=== PATIENT | female | born 1975 | race Caucasian/White ===

== ENCOUNTER 2016-10-09 20:47 | Emergency (ER) | payer OTHER ==
[~2016-10-09] VITALS: Ht 170.2 cm; Wt 92.3 kg
[~2016-10-09 20:47] MED LIST: ALBUTEROL SULF8.5 GM IH; BENTYL20 MG PO; DETROL; DETROL LA PO; DETROL LA2 MG PO; IBUPROFEN800 MG PO; KLONOPIN0.5 M1 PO; KLONOPIN1 MG PO; LACTULOSE; LEVOTHYROXINE; LEVOTHYROXINE PO; LEVOTHYROXINE100 MCG PO; LEVOTHYROXINE50 MCG PO; LEXAPRO PO; LEXAPRO20 MG PO; LIDOCAINE20 MG/1 M5 PO; METHADONE10 MG PO; MIRALAX; MOTRIN800 MG PO; PERIDEX1 ML MM; PHENERGAN-CODE120 ML PO; PHENTERMINE HCL15 MG PO; PHENTERMINE PO; PREDNISONE20 MG PO; PREMARIN1.25 MG PO; PROZAC20 M1 PO; PROZAC40 MG PO; SOMA350 MG PO; SUBOXONE 8 MG-1 EAC1 SL; SUBOXONE 8 MG-1 EACH SL; TORADOL10 MG PO; TRAZODONE HCL50 MG PO; WELLBUTRIN PO; XANAX1 MG PO; ZITHROMAX Z-PA250 MG PO
[2016-10-09 21:21] LABS: ADD MIUA? YES; BILIRUBIN NEGATIVE; BLOOD NEGATIVE; COLOR YELLOW ((YELLOW)); GLUCOSE (STRIP) NEGATIVE; KETONES 5; LEUKOCYTES NEGATIVE; NITRITE NEGATIVE; PROTEIN (STRIP) 30; UROBILINOGEN 0.2 MG/DL (0.2-1.0)
[2016-10-09 21:27] LABS: BACTERIA RARE /HPF; EPITHELIAL CELLS RARE /HPF; MUCUS TRACE /LPF; WHITE BLOOD CELLS 0-5 /HPF (0-5)
[2016-10-09 21:40] LABS: EOSINOPHIL (%) 1.4 % (0-5); EOSINOPHIL COUNT 0.2 K/uL (0-0.3); HEMATOCRIT 40.1 % (36.0-46.0); IMMATURE GRANULOCYTE (%) 0.3 % (0.0-0.7); INSTRUMENT ABS NEUTROPHIL CT 5.6 K/uL; MCH 29.4 PG (29.0-34.0); MCHC 33.2 G/DL (30.0-36.0); MCV 88.7 FL (83-99); MEAN PLAT.VOLUME 11.2 uM^3 (9.5-12.4); MONOCYTE (%) 6.8 % (3-12); MONOCYTE COUNT 0.8 K/uL (0-0.8); NEUTROPHIL (%) 48.2 % (45-76); NEUTROPHIL COUNT 5.6 K/uL (1.8-6.4); PLATELET COUNT 204 K/uL (156-360); RBC DIS.WIDTH-CV 12.4 % (11.8-14.6); RBC DIS.WIDTH-SD 40.6 % (39-53); RED BLOOD COUNT 4.52 M/uL (3.80-5.20); WHITE BLOOD COUNT 11.6 K/uL (4.1-10.2)
[2016-10-09 21:50] LABS: CHLORIDE 103 mEq/L (99-109); POTASSIUM 3.8 mEq/L (3.7-5.4); SODIUM 139 mEq/L (136-147)
[2016-10-09 21:53] LABS: GLUCOSE 103 mg/dL (70-99)
[2016-10-09 21:54] LABS: ANION GAP 9 MEQ/L (2-14)
[2016-10-09 21:55] LABS: TOTAL BILIRUBIN 0.2 mg/dL (0.0-1.0)
[2016-10-09 21:56] LABS: ALKALINE PHOSPHATASE 124 IU/L (3-129)
[2016-10-09 21:57] LABS: GFR ESTIMATE (CALCULATED) > 59 mL/min/
[2016-10-09 21:58] LABS: DIRECT BILIRUBIN 0.1 mg/dL (0.0-0.3); UREA NITROGEN (BUN) 12 mg/dL (9-23)
[2016-10-09 22:00] LABS: LIPASE 25 U/L (1.0-51.0)
[2016-10-09] MEDS ORDERED: MIRALAX255 GM PO (23:50)
[2016-10-09] MEDS ORDERED: BENTYL20 MG PO (23:50)
[2016-10-10 00:15] VITALS: BP 141/82
== END 2016-10-10 00:17 | disposition home or self-care (01) ==
LOC: EME 20:47
PROVIDERS: Physician Assistant
DX: R10.31 Right lower quadrant pain (principal); M54.42 Lumbago with sciatica, left side; M54.41 Lumbago with sciatica, right side; K59.00 Constipation, unspecified; Z87.442 Personal history of urinary calculi; Z85.42 Personal history of malignant neoplasm of other parts of uterus; Z90.710 Acquired absence of both cervix and uterus; F17.200 Nicotine dependence, unspecified, uncomplicated; F32.9 Major depressive disorder, single episode, unspecified; Z90.49 Acquired absence of other specified parts of digestive tract
CPT/HCPCS: 74177; 80048; 80076; 81003; 83690; 85025; 99281; 99285; J1100; J1885; J3010; J3360; J7030

== ENCOUNTER 2017-06-29 11:19 | Emergency (ER) | payer OTHER ==
[~2017-06-29] VITALS: Ht 165.1 cm; Wt 102.3 kg
[~2017-06-29 11:19] MED LIST changes: +MIRALAX255 GM PO; +PHENERGAN DM SYR1 ML PO
[2017-06-29 12:19] LABS: HEMATOCRIT 44.4 % (36.0-46.0); HEMOGLOBIN 15.6 G/DL (11.9-15.5); MCH 30.6 PG (29.0-34.0); MCHC 35.1 G/DL (30.0-36.0); MCV 87.2 FL (83-99); PLATELET COUNT 297 K/uL (156-360); RBC DIS.WIDTH-CV 12.8 % (11.8-14.6); RBC DIS.WIDTH-SD 40.4 % (39-53); RED BLOOD COUNT 5.09 M/uL (3.80-5.20); WHITE BLOOD COUNT 16.4 K/uL (4.1-10.2)
[2017-06-29 12:36] LABS: BILIRUBIN NEGATIVE; BLOOD NEGATIVE; COLOR YELLOW ((YELLOW)); GLUCOSE (STRIP) NEGATIVE; KETONES NEGATIVE; LEUKOCYTES NEGATIVE; NITRITE NEGATIVE; PROTEIN (STRIP) NEGATIVE; SPECIFIC GRAVITY 1.018 (1.000-1.030); UROBILINOGEN 0.2 MG/DL (0.2-1.0)
[2017-06-29 12:39] LABS: ALBUMIN 4.5 G/DL (3.2-4.8); CHLORIDE 98 MEQ/L (99-109); POTASSIUM 3.9 MEQ/L (3.7-5.4); SODIUM 134 MEQ/L (136-147); TOTAL BILIRUBIN 0.3 MG/DL (0.0-1.0)
[2017-06-29 12:40] LABS: APPEARANCE CLEAR ((CLEAR)); UCUL ADDED? NO
[2017-06-29 12:45] LABS: ALKALINE PHOSPHATASE 124 IU/L (3-129); ALT (GPT) 33 IU/L (3-49); AST (GOT) 32 IU/L (2-34); CREATININE 0.8 MG/DL (0.6-1.3); GFR ESTIMATE (CALCULATED) > 59 mL/min/; GLUCOSE 98 mg/dL (70-99); TOTAL PROTEIN 7.9 G/DL (6.4-8.3); UREA NITROGEN (BUN) 10 mg/dL (9-23)
[2017-06-29] MEDS ORDERED: MIRALAX17 GM PO (14:02)
[2017-06-29 14:49] LABS: QUANTITATIVE HCG < 4.0 MIU/ML
[2017-06-29] MEDS ORDERED: ZOFRAN4 MG PO (14:51)
[2017-06-29] MEDS ORDERED: NULYTELY SOLU4000 ML PO (16:23)
[2017-06-29] MEDS ORDERED: MYLICON,MYLANTA80 MG PO (16:29)
[2017-06-29 16:45] VITALS: BP 122/70
== END 2017-06-29 16:47 | disposition home or self-care (01) ==
LOC: EME 11:19
DX: K58.9 Irritable bowel syndrome, unspecified (principal); K21.9 Gastro-esophageal reflux disease without esophagitis; J42 Unspecified chronic bronchitis; F31.9 Bipolar disorder, unspecified; F32.9 Major depressive disorder, single episode, unspecified; F17.200 Nicotine dependence, unspecified, uncomplicated; Z79.891 Long term (current) use of opiate analgesic; Z87.442 Personal history of urinary calculi; Z87.42 Personal history of other diseases of the female genital tract; Z90.49 Acquired absence of other specified parts of digestive tract; Z90.710 Acquired absence of both cervix and uterus; Z85.42 Personal history of malignant neoplasm of other parts of uterus; Z88.6 Allergy status to analgesic agent; Z88.5 Allergy status to narcotic agent; Z88.8 Allergy status to other drugs, medicaments and biological substances
CPT/HCPCS: 74177; 80053; 81003; 84702; 85027; 99281; 99285; J1885; J2405; J7030

== ENCOUNTER 2017-10-02 17:01 | Emergency (ER) | payer OTHER ==
[~2017-10-02] VITALS: Ht 165.1 cm; Wt 105.2 kg
[~2017-10-02 17:01] MED LIST changes: +MIRALAX17 GM PO; +MYLICON,MYLANTA80 MG PO; +NULYTELY SOLU4000 ML PO; +ZOFRAN4 MG PO
[2017-10-02 17:34] LABS: HEMOGLOBIN 12.8 G/DL (11.9-15.5); MCH 31.1 PG (29.0-34.0); MCHC 34.6 G/DL (30.0-36.0); MCV 89.8 FL (83-99); PLATELET COUNT 215 K/uL (156-360); RBC DIS.WIDTH-CV 12.5 % (11.8-14.6); RBC DIS.WIDTH-SD 40.9 % (39-53); RED BLOOD COUNT 4.12 M/uL (3.80-5.20); WHITE BLOOD COUNT 20.4 K/uL (4.1-10.2)
[2017-10-02 17:45] LABS: CHLORIDE 101 mEq/L (99-109); POTASSIUM 4.3 mEq/L (3.7-5.4); SODIUM 136 mEq/L (136-147)
[2017-10-02 17:47] LABS: GLUCOSE 84 mg/dL (70-99); TOTAL PROTEIN 7.2 g/dL (6.4-8.3)
[2017-10-02 17:49] LABS: TOTAL BILIRUBIN 0.3 mg/dL (0.0-1.0)
[2017-10-02 17:51] LABS: ALKALINE PHOSPHATASE 142 IU/L (3-129); CREATININE 0.9 mg/dL (0.6-1.3); GFR ESTIMATE (CALCULATED) > 59 mL/min/
[2017-10-02 17:52] LABS: UREA NITROGEN (BUN) 9 mg/dL (9-23)
[2017-10-02 17:53] LABS: AST (GOT) 48 IU/L (2-34)
[2017-10-02 17:54] LABS: ALT (GPT) 86 IU/L (3-49); LIPASE 21 U/L (1.0-51.0)
[2017-10-02 18:02] LABS: QUANTITATIVE HCG < 4.0 MIU/ML
[2017-10-02 19:05] LABS: APPEARANCE SL.HAZY ((CLEAR)); BILIRUBIN NEGATIVE; BLOOD NEGATIVE; COLOR YELLOW ((YELLOW)); GLUCOSE (STRIP) NEGATIVE; KETONES NEGATIVE; LEUKOCYTES NEGATIVE; NITRITE NEGATIVE; PROTEIN (STRIP) NEGATIVE; SPECIFIC GRAVITY 1.008 (1.000-1.030); UROBILINOGEN 0.2 MG/DL (0.2-1.0)
[2017-10-02 19:11] LABS: BACTERIA RARE /HPF; EPITHELIAL CELLS 2+ /HPF; MUCUS TRACE /LPF; RED BLOOD CELLS 0-5 /HPF (0-5); UCUL ADDED? NO; WHITE BLOOD CELLS 0-5 /HPF (0-5)
[2017-10-02 19:12] LABS: TROP-I INTERPRETATION NEGATIVE; TROPONIN-I < 0.01 ng/mL (0.0-0.30)
[2017-10-02 21:37] LABS: HEMATOCRIT 36.2 % (36.0-46.0); HEMOGLOBIN 12.5 G/DL (11.9-15.5); MCH 30.9 PG (29.0-34.0); MCHC 34.5 G/DL (30.0-36.0); MCV 89.6 FL (83-99); PLATELET COUNT 190 K/uL (156-360); RBC DIS.WIDTH-CV 12.4 % (11.8-14.6); RBC DIS.WIDTH-SD 40.9 % (39-53); RED BLOOD COUNT 4.04 M/uL (3.80-5.20); WHITE BLOOD COUNT 18.6 K/uL (4.1-10.2)
[2017-10-02 21:40] LABS: AMYLASE 44 IU/L (1-118)
[2017-10-02] MEDS ORDERED: CIPRO500 MG PO (22:14)
[2017-10-02 22:37] VITALS: BP 120/88
== END 2017-10-02 22:38 | disposition home or self-care (01) ==
LOC: EME 17:01
PROVIDERS: Physician Assistant
DX: R10.12 Left upper quadrant pain (principal); K59.00 Constipation, unspecified; D72.829 Elevated white blood cell count, unspecified; Z90.49 Acquired absence of other specified parts of digestive tract; Z87.442 Personal history of urinary calculi; F32.9 Major depressive disorder, single episode, unspecified; K21.9 Gastro-esophageal reflux disease without esophagitis; Z85.42 Personal history of malignant neoplasm of other parts of uterus; Z79.891 Long term (current) use of opiate analgesic; Z90.710 Acquired absence of both cervix and uterus; F17.200 Nicotine dependence, unspecified, uncomplicated; Z88.8 Allergy status to other drugs, medicaments and biological substances; Z88.5 Allergy status to narcotic agent
CPT/HCPCS: 74177; 80053; 81003; 82150; 83605; 83690; 84484; 84702; 85027; 99281; 99284; J1885; J2270; J2405; J7030